=== PATIENT | female | born 2000 | race Caucasian/White ===

== ENCOUNTER 2021-05-05 21:16 | Emergency (ER) | payer OTHER, MEDICAID ==
[~2021-05-05] VITALS: Ht 157.5 cm; Wt 83.9 kg
[2021-05-05 21:36] LABS: URINE BILIRUBIN NEGATIVE (Negative); URINE BLOOD NEGATIVE (Negative); URINE CLARITY CLEAR; URINE COLOR YELLOW; URINE GLUCOSE-RANDOM NEGATIVE (Negative); URINE KETONES NEGATIVE (Negative); URINE LEUKOCYTES NEGATIVE (Negative); URINE NITRITE NEGATIVE (Negative); URINE PROTEIN NEGATIVE (Negative); URINE SPECIFIC GRAVITY <= 1.005 (1.005-1.030); URINE UROBILINOGEN 0.2 E.U./dl (0.2-1.0)
[2021-05-05] MEDS ORDERED: HYDROXYZINE HCL25 M2 (21:42)
[2021-05-05] MEDS ORDERED: CLARITIN10 M3 PO (21:43)
[2021-05-05 21:44] LABS: AMP/METHAMP Negative (Negative); BARBITURATES Negative (Negative); BENZODIAZEPINES Negative (Negative); COCAINE Negative (Negative); METHADONE Negative (Negative); OPIATES Negative (Negative); PCP Negative (Negative); THC Negative (Negative)
[2021-05-05 22:06] LABS: HEMATOCRIT 38.2 % (37.0-47.0); HEMOGLOBIN 12.6 gm/dL (12.0-15.0); MCH 28.7 pg (26.0-34.0); MPV 8.8 fl. (7.2-11.1); RBC 4.39 mil/uL (4.20-5.00); RDW-CV 15.8 % (10.5-14.5); WBC 8.7 thou/uL (4.0-11.0)
[2021-05-05 22:19] LABS: CALCIUM 8.9 mg/dL (8.5-10.1); CREATININE 0.9 mg/dL (0.6-1.3); POTASSIUM 3.8 mmol/L (3.5-5.1)
[2021-05-05 22:20] LABS: ALBUMIN 3.4 g/dL (3.4-5.0); TOTAL BILIRUBIN 0.2 mg/dL (<0.1-1.0); TOTAL PROTEIN 7.1 g/dL (6.4-8.2)
[2021-05-05 22:22] LABS: SALICYLATE < 2.8 mg/dL (2.8-20.0)
[2021-05-05 22:23] LABS: ACETAMINOPHEN < 2 ug/mL (10-30); ALCOHOL < 10 mg/dL (<10)
[2021-05-06 02:38] VITALS: BP 122/79
--- NOTE | 2021-05-06 12:12 | EKG ---
[place] [address] ELECTROCARDIOGRAM REPORT Name: JONH CONNOLLY Room: [facility]#: [id number] Admission: 05/05/21 Attend Phys: Discharge: 05/06/21 Date of : 2 Date of Service: 05/05/212122 Report #: [id number] THIS REPORT FOR: //name// [facility] ED Test Date: 2021-05-05 Test Time: 21:23:33 Pat Name: JONH CONNOLLY Department: Room: Gender: Obstetrics Gynecology Md: : 2000 Requested By: Elsa Naav Order Number: [id number] MD: Maykel Self Measurements Intervals [place] Rate: 112 P: 59 IL: 145 QRS: 41 QRSD: 82 T: 29 QT: 336 QTc: 459 Interpretive Statements Sinus tachycardia No previous ECG available for comparison Electronically Signed On 05-06-2021 12:12:42 JOB CHECKER by Maykel Self [email or web address] <ELECTRONICALLY SIGNED> By: Maykel Self MD, [facility] 05/06/21 1212 22 22 Maykel Self MD, FACC /EPI
[2021-05-07] MEDS ORDERED: PROTONIX40 M2 PO (17:33)
== END 2021-05-06 02:38 | disposition home or self-care (01) ==
LOC: M.ERS 21:16
PROVIDERS: Personal Emergency Response Attendant
DX: T39.312A Poisoning by propionic acid derivatives, intentional self-harm, initial encounter (principal); F32.9 Major depressive disorder, single episode, unspecified; Z71.1 Person with feared health complaint in whom no diagnosis is made; F41.9 Anxiety disorder, unspecified; K21.9 Gastro-esophageal reflux disease without esophagitis; F17.210 Nicotine dependence, cigarettes, uncomplicated; Z86.14 Personal history of Methicillin resistant Staphylococcus aureus infection; Z79.899 Other long term (current) drug therapy; Z88.0 Allergy status to penicillin; Y92.89 Other specified places as the place of occurrence of the external cause

== ENCOUNTER 2021-05-07 17:10 | Emergency (ER) | payer OTHER, MEDICAID ==
[~2021-05-07] VITALS: Ht 157.5 cm; Wt 83.9 kg
[~2021-05-07 17:10] MED LIST: CLARITIN10 M3 PO; HYDROXYZINE HCL25 M2
[2021-05-07] MEDS ORDERED: PROTONIX40 M2 PO (17:33)
[2021-05-07 19:48] VITALS: BP 124/70
== END 2021-05-07 19:48 | disposition home or self-care (01) ==
LOC: M.ERS 17:10
DX: J06.9 Acute upper respiratory infection, unspecified (principal); F17.210 Nicotine dependence, cigarettes, uncomplicated; K21.9 Gastro-esophageal reflux disease without esophagitis; Z88.0 Allergy status to penicillin; Z79.899 Other long term (current) drug therapy; Z86.14 Personal history of Methicillin resistant Staphylococcus aureus infection